=== PATIENT | female | born 1975 | race Hispanic/Latino ===

== ENCOUNTER 2021-10-22 06:17 | Day surgery (SDC) | payer OTHER ==
[2021-10-19 11:08] LABS: BASOPHILS % (AUTO) 0.7 % (0.0-5.0); EOSINOPHILS % (AUTO) 0.7 % (0.0-8.0); HEMATOCRIT 39.5 % (36-48); LYMPHOCYTES % (AUTO) 20.8 % (21.0-51.0); MEAN CORPUSCULAR HEMOGLOBIN 30.9 pg (27.0-33.0); MEAN CORPUSCULAR HGB CONC 33.2 g/dL (32.0-36.0); MEAN CORPUSCULAR VOLUME 93.2 fL (79-99); MONOCYTES % (AUTO) 5.9 % (3.0-13.0); NEUTROPHILS % (AUTO) 71.5 % (40.0-77.0); PLATELET COUNT (AUTO) 259 K/uL (130-400); RED BLOOD CELL COUNT(AUTO) 4.24 MIL/uL (4.00-5.50); RED CELL DISTRIBUTION WIDTH 12.8 % (11.0-15.5); WHITE BLOOD COUNT (AUTO) 7.4 K/uL (4.8-10.8)
[2021-10-19 11:21] LABS: CREATININE 0.8 mg/dL (0.5-1.5); POTASSIUM 3.9 mmol/L (3.5-5.1)
[2021-10-19 12:19] VITALS: BP 111/70
[2021-10-22] VITALS (14 sets, daily range): BP systolic 101–130; BP diastolic 49–84
[~2021-10-22] VITALS: Ht 160 cm; Wt 64.9 kg
[~2021-10-22 06:17] MED LIST: NORG1TAB87 PO
[2021-10-22] MEDS ORDERED: LACTATED RINGERS 1000ML 1,000 ML IV ONE (06:29)
[2021-10-22] MEDS ORDERED: CEFAZOLIN SODIUM 1 GM VIAL ONE (07:48)
[2021-10-22] MEDS ORDERED: CEFAZOLIN SODIUM 1 GM VIAL IVP ONE (08:00)
[2021-10-22] MEDS ORDERED: MIDAZOLAM HCL 1 MG/ML 2ML VIAL ONE (10:04)
[2021-10-22] MEDS ORDERED: ROPIVACAINE 0.5% 5MG/ML 30ML IJ ONE (10:06)
[2021-10-22] MEDS ORDERED: LIDOCAINE PF 100MG/5ML (2%) SYRINGE 5ML ONE (10:07)
[2021-10-22] MEDS ORDERED: FENTANYL CITRATE PF 50 MCG/1 ML 2ML VIAL ONE ×2 (10:07→13:03)
[2021-10-22] MEDS ORDERED: PROPOFOL 10 MG/ML 20ML VIAL IV ONE (10:07)
[2021-10-22] MEDS ORDERED: SUCCINYLCHOLINE CHLORIDE 20 MG/ML 10 ML VIAL ONE (10:10)
[2021-10-22] MEDS ORDERED: ROCURONIUM 10MG/1ML SYR 10 MG/ML ML ONE (10:10)
[2021-10-22] MEDS ORDERED: PHENYLEPHRINE HCL 10 MG/ML 1ML VIAL IV ONE (10:24)
[2021-10-22] MEDS ORDERED: EPHEDRINE SULFATE 50 MG/ML AMPULE ONE (10:42)
[2021-10-22] MEDS ORDERED: DEXAMETHASONE SOD PHOSPHATE 4 MG/ML 1ML VIAL ONE (11:07)
[2021-10-22] MEDS ORDERED: KETOROLAC 30MG VIAL (30MG/ML) ONE (13:31)
[2021-10-22] MEDS ORDERED: ONDANSETRON 4MG INJ ONE (13:31)
[2021-10-22] MEDS ORDERED: CEPH500B PO (13:57)
[2021-10-22] MEDS ORDERED: IBUP-2070 PO (13:57)
[2021-10-22] MEDS ORDERED: HYDR-4060 PO (13:57)
== END 2021-10-22 15:50 | disposition home or self-care (01) ==
LOC: DAH 06:17
PROVIDERS: ATTEND Orthopaedic Surgery
DX: S83.511A Sprain of anterior cruciate ligament of right knee, initial encounter (principal); T84.89XA Other specified complication of internal orthopedic prosthetic devices, implants and grafts, initial encounter; M25.361 Other instability, right knee; M94.261 Chondromalacia, right knee; X58.XXXA Exposure to other specified factors, initial encounter; Y93.89 Activity, other specified; Y92.69 Other specified industrial and construction area as the place of occurrence of the external cause; Y99.8 Other external cause status; Y82.8 Other medical devices associated with adverse incidents; Z20.822 Contact with and (suspected) exposure to COVID-19
CPT/HCPCS: 20680; 29888; 36415; 64445; 73560; 76942; 80048; 84703; 85025; 87635; A4649 ×4; A4930; A6223; A6260; C1762; C1776 ×2; C9803; J0330; J0690 ×2; J1100; J1885; J2001; J2250; J2370; J2405; J2704; J2795; J3010 ×2; J3490; J7120 ×2